=== PATIENT | male | born 1985 | race Caucasian/White ===

== ENCOUNTER 2017-01-19 11:21 | Observation (INO) | payer OTHER ==
[2017-01-19 11:24] VITALS: BMI 42.5
--- NOTE | 2017-01-19 11:45 | ED PDOC ---
HPI: Abdomen Time Seen by Provider: 01/19/17 11:34 Chief Complaint (Nursing): Abdominal Pain Chief Complaint (Provider): Abdominal pain History Per: Patient History/Exam Limitations: no limitations Onset/Duration Of Symptoms: Hrs Outside of [place] travel?: No Current Symptoms Are (Timing): Still Present Context: Food Severity: Moderate Location Of Pain/Discomfort: Epigastric Quality Of Discomfort: Sharp Associated Symptoms: Nausea, Vomiting. denies: Diarrhea, Back Pain, Chest Pain Additional History Per: Family Additional Complaint(s): The pt. is a 31yo male, presents to the ED for evaluation of epigastric pain associated with nausea and multiple episodes of vomiting since this morning. Pt reports he ate a lot of food last night, went to sleep and upon waking up this morning had sharp epigastric abdominal pain and vomiting, initially with food in vomitus and later with "bitter yellow fluid." Pt reports normal bowel movement this morning. Pt's is present at bedside and reports the family ate similar food as the pt and are without symptoms. additionally reports the pt ate pork 2 weeks ago after which he had similar symptoms. also reports giving the pt Zofran without relief. Pt denies any chest pain, shortness of breath, headache or dizziness. Pt offers no additional medical complaints. No lower abd pain, back pain, weakness, palpitations. Denies drugs or etoh. Past Medical History Reviewed: Historical Data, Nursing Documentation, Vital Signs Vital Signs: Last Vital Signs Temp 97.8 F 01/19/17 11:26 Pulse 68 01/19/17 11:26 Resp 18 01/19/17 11:26 BP 128/72 01/19/17 11:26 Pulse Ox 100 01/19/17 13:36 - Medical History PMH: No Chronic Diseases Denies: Diabetes, HTN - Surgical History Surgical History: No Surg Hx - Family History Family History: States: Unknown Family Hx - Living Arrangements Living Arrangements: With Family - Social History Current smoker - smoking cessation education provided: No Alcohol: None Drugs: Denies - Immunization History Hx Tetanus Toxoid Vaccination: No Hx Influenza Vaccination: No Hx Pneumococcal Vaccination: No - Home Medications Home Medications: Ambulatory Orders Medication Instructions Recorded Meclizine HCl [Antivert/25] 1 tab PO TID PRN #25 tab 12/07/15 Acetaminophen [Acetaminophen Extra 1,000 mg PO Q6 PRN #60 tablet 12/09/15 Strength] Ibuprofen 600 mg PO Q6 #60 tab 12/09/15 Oseltamivir Phosphate [Tamiflu] 75 mg PO BID #10 capsule 12/09/15 - Allergies Allergies/Adverse Reactions: Allergies Allergy/AdvReac Type Severity Reaction Status Date / Time No Known Allergies Allergy Verified 01/19/17 11:26 Review of Systems ROS Statement: Except As Marked, All Systems Reviewed And Found Negative Cardiovascular: Negative for: Chest Pain Respiratory: Negative for: Shortness of Breath Gastrointestinal: Positive for: Nausea, Vomiting, Abdominal Pain. Negative for : Diarrhea Neurological: Negative for: Headache, Dizziness Physical Exam - Reviewed Nursing Documentation Reviewed: Yes Vital Signs Reviewed: Yes - Physical Exam Appears: Positive for: Well, Non-toxic, Uncomfortable Head Exam: Positive for: ATRAUMATIC, NORMAL INSPECTION, NORMOCEPHALIC Skin: Positive for: Normal Color, Warm, DRY Eye Exam: Positive for: Normal appearance Neck: Positive for: Normal, Supple Cardiovascular/Chest: Positive for: Regular Rate, Rhythm Respiratory: Positive for: Normal Breath Sounds. Negative for: Respiratory Distress Gastrointestinal/Abdominal: Positive for: Soft, Tenderness (Mild epigastric tenderness. no periumbilical tenderness, no lower abdomen tenderness noted.). Negative for: Mass, Guarding Back: Positive for: Normal Inspection Extremity: Positive for: Normal ROM. Negative for: Deformity, Swelling Neurologic/Psych: Positive for: Alert, Oriented - Laboratory Results Result Diagrams: 01/19/17 12:20 01/19/17 12:20 Interpretation Of Abn Labs: 13.9k - ECG ECG: Positive for: Interpreted By Me, Viewed By Me ECG Rhythm: Positive for: Sinus Bradycardia O2 Sat by Pulse Oximetry: 100 (RA) Pulse Ox Interpretation: Normal - Radiology X-Ray: Interpreted by Me, Viewed By Me X-Ray Interpretation: No Acute Disease - Progress ED Course And Treament: 1347: Spoke with Dr. Bear. Will admit pt. tele obs. Stable. AAOx3. Pt. bradycardic. Needs eval. Medical Decision Making Medical Decision Making: Time: 1142 Impression: Abdominal pain with vomiting Plan: * * * Scribe Attestation: Documented by Adele Syed acting as a scribe for Ghulam Zavala MD. Provider Attestation: All medical record entries made by the Scribe were at my direction and personally dictated by me. I have reviewed the chart and agree that the record accurately reflects my personal performance of the history, physical exam, medical decision making, and the department course for this patient. I have also personally directed, reviewed, and agree with the discharge instructions and disposition. Disposition - Clinical Impression Clinical Impression: Abdominal pain, Bradycardia - Patient ED Disposition Is Patient to be Admitted: Yes Counseled Patient/Family Regarding: Studies Performed, Diagnosis - Disposition Disposition Time: 13:48 Condition: SERIOUS - Pt Status Changed To: Hospital Disposition Of: Observation - POA Present On Arrival: None
[2017-01-19] MEDS ORDERED: Sodium Chloride 0.9% 1,000 ML IV STA (11:50)
[2017-01-19 12:37] LABS: BASO % 0.3 % (0.0-2.0); EOS % 0.2 % (0.0-4.0); HEMATOCRIT 46.7 % (35.0-51.0); LYMPH # 1.3 K/uL (1.0-4.3); LYMPH % 9.2 % (20.0-40.0); MEAN CELL VOLUME 83.3 fl (80.0-94.0); MEAN CORPUSCULAR HEMOGLOBIN 27.7 pg (27.0-31.0); MEAN CORPUSCULAR HGB CONC 33.2 g/dL (33.0-37.0); MEAN PLATELET VOLUME 9.5 fl (7.2-11.7); MONO # 0.3 K/uL (0.0-0.8); MONO % 2.4 % (0.0-10.0); NEUT # 12.2 K/uL (1.8-7.0); NEUT % 87.9 % (50.0-75.0); PLATELET COUNT 263 K/uL (130-400); RED CELL DISTRIBUTION WIDTH 13.9 % (11.5-14.5); WHITE BLOOD COUNT 13.9 K/uL (4.8-10.8)
[2017-01-19 12:47] LABS: ALB/GLOB RATIO 1.3 (1.0-2.1); ALKALINE PHOSPHATASE 78 U/L (38-126); ALT/SGPT 37 U/L (21-72); AST/SGOT 42 U/L (17-59); BILIRUBIN,TOTAL 0.9 mg/dl (0.2-1.3); BLOOD UREA NITROGEN 16 mg/dl (9-20); CALCIUM 9.6 mg/dL (8.4-10.2); CARBON DIOXIDE 29 mmol/L (22-30); CHLORIDE 100 mmol/L (98-107); GFR AFRICAN-AMERICAN > 60; GLUCOSE,RANDOM 146 mg/dL (75-110); LIPASE 90 U/L (23-300); SODIUM 141 mmol/l (132-148); TOTAL PROTEIN 9.3 G/DL (6.3-8.2)
[2017-01-19 13:10] LABS: POTASSIUM 5.3 MMOL/L (3.6-5.0)
[2017-01-19] MEDS ORDERED: Sodium Chloride 0.9% 500 ML IV STA (13:46)
[2017-01-19] MEDS ORDERED: Iohexol 240 (50 ml) ONE (14:11)
[2017-01-19] MEDS ORDERED: Iohexol 240 (50 ml) PO ONE (14:14)
[2017-01-19 14:33] LABS: T4 10.2 ug/dl (5.5-11.0)
--- NOTE | 2017-01-19 14:35 | CP.PCM.HP ---
History of Present Illness - History of Present Illness History of Present Illness: Hospitalist Admission H&P (Patient was seen and examined at 1:55 PM 01/19/17 ER Bed #24) PMD: States he does not have a doctor CODE STATUS: FULL CODE. NO Living Will/Advance Directive. Victorina has been designated by patient as his Health Care Proxy. CHIEF COMPLAINT: Abdominal Pain 31 year old male (who denies any medical history) who presents to the [facility] ER by having his drive him here with a chief complaint of abdominal pain. Around 8 PM last night patient had a dinner of home cooked chicken and sanchez with spring mix salad. He went to sleep without any issues but woke up around 3 AM hungry and had some peaches, pineapple, and a glass of orange juice. He went back to sleep but then woke up at 8 AM with epigastric pain that was sharp in nature, nonradiating. He went to the bathroom and had a normal (nonbloody/ nonblack/well formed) bowel movement and this was followed by 5 episodes of nausea and vomiting (nonbilious/nonbloody that was described as the food he had eaten) within 1 hour. As the pain was not going away he asked his to drive him here to the ER. Currently upon FULL ROS there is NO chest pain, NO palpitations, NO SOB/Cough/ Wheezing, (+) Abdominal Pain Epigastric as described above, (+) Nausea that is improved compared to this morning, NO vomiting while in the ER, NO diarrhea, NO burning/pain with urination, NO lightheadedness/dizziness, NO headache, NO new changes in vision/loss of vision/eye pain, NO new changes in hearing/ear pain/ loss of hearing/tinnitus, NO paresthesias/numbness, NO edema. 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 [employer], Lives with and Son, NO tobacco, NO alcohol, NO illicit drugs Family Hx: Mom (healthy), Dad (Hx of Hepatitis C and subsequent Liver Transplant Present on Admission - Present on Admission Any Indicators Present on Admission: Yes History of DVT/PE: No History of Uncontrolled Diabetes: No Urinary Catheter: No Decubitus Ulcer Present: No Review of Systems - Review of Systems Review of Systems: Please see HPI Past Patient History - Infectious Disease Hx of Infectious Diseases: None - Past Medical History & Family History Pertinent Family History: Please see HPI - Past Social History Alcohol: None Drugs: Denies - CARDIAC Hx Hypertension: No - NEUROLOGICAL Hx Vertigo: Yes - PSYCHIATRIC Hx Substance Use: No - SURGICAL HISTORY Hx Surgeries: No - ANESTHESIA Hx Anesthesia: No Meds Allergies/Adverse Reactions: Allergies Allergy/AdvReac Type Severity Reaction Status Date / Time No Known Allergies Allergy Verified 01/19/17 11:26 Physical Exam - Constitutional Appears: Non-toxic, No Acute Distress Additional comments: Please note that when I entered the patients room in the ER he was sleeping soundly and easily arousable. Once awake and having him sitting up in the stretcher, patient kept on repeating that he was in pain in the epigastric area and patient could not seem to sit still. As the my interview and exam progressed , the patient did not appear to be any pain but as soon as my exam was concluded and I explained the evaluation and treatment plan, patient layed down and again appeared to be in pain. I left the room to put in a few orders for the patient and then a few minutes later, walked to patient room to check in on patient, and he was sleeping peacefully. - Head Exam Head Exam: ATRAUMATIC, NORMAL INSPECTION, NORMOCEPHALIC - Eye Exam Eye Exam: EOMI, Normal appearance, PERRL Pupil Exam: NORMAL ACCOMODATION, PERRL - ENT Exam ENT Exam: Normal Exam, Normal External Ear Exam, Normal Oropharynx Additional comments: Mucous Membranes are Dry - Neck Exam Neck exam: Positive for: Normal Inspection Additional comments: NO cervical/supraclavicular/submandibular lymphadenopathy NO thyromegaly - Respiratory Exam Respiratory Exam: Clear to Auscultation Bilateral, NORMAL BREATHING PATTERN Additional comments: CTA B/L, NO R/R/W - Cardiovascular Exam Cardiovascular Exam: REGULAR RHYTHM, +S1, +S2 Additional comments: NS1 and NS2, NO N/R/G - GI/Abdominal Exam Additional comments: BSx4, Soft, Central Obesity, NO HSM, (+) Epigastric Pain with palpation (pain appears to be out of proportion to exam) however there was NO guarding/rebound tenderness - Extremities Exam Extremities exam: Positive for: normal inspection Additional comments: In the Bilateral UE and LE: Capillary Refill is 2 seconds, NO edema, Pulses are strong and equal - Neurological Exam Neurological exam: Alert, CN II-XII Intact, Oriented x3 - Skin Skin Exam: Intact, Normal Color, Warm Additional comments: NO rashes are noted on the chest, abdomen, arms/hands, back, legs/feet Results - Vital Signs Recent Vital Signs: Last Vital Signs Temp 98.2 F 01/19/17 14:13 Pulse 52 L 01/19/17 14:13 Resp 18 01/19/17 14:13 BP 142/79 01/19/17 14:13 Pulse Ox 100 01/19/17 14:13 - Labs Result Diagrams: 01/19/17 12:20 01/19/17 13:39 Assessment & Plan (1) Epigastric pain Assessment and Plan: LFTs and Lipase are normal Patient's nausea has improved with the Reglan given by ER Physician Patient is having bowel movements as explained in HPI Could this be secondary to gastroenteritis? Pepcid 20 mg IV Q12H Zofran 4 mg IV Q6H PRN N/V NS at 100 ml/hr x [address] Abdomen/Pelvis with PO and IV contrast Status: Acute (2) Leukocytosis Assessment and Plan: Elevated WBC Could this be secondary to stress response? NO fever Chest X Ray does not show any active disease F/U CBC in morning 01/20/17 Status: Acute (3) Sinus bradycardia Assessment and Plan: Heart Rate at 39 bpm on EKG. Current EKG when compare to EKG in November 2015 does not show any change other than the heart rate. Patient is not on any medication that would account for the low heart rate. F/U STAT TSH, T4, Magnesium, and Urine Drug Screen. F/U further recommendations from Cardiology Dr. Jm Quezada whose help will be greatly appreciated. Monitor on Observation in Telemetry Unit Status: Acute (4) Hyperkalemia Assessment and Plan: Patient was slightly hyperkalemic upon initial labs at 5.3 F/U Potassium level as part of morning labs 01/20/17 Status: Acute (5) Prophylactic measure Assessment and Plan: Heparin 5,000 units SC Q8H and B/L SCDs for DVT Prophylaxis (Risk Score of 2 based upon BMI > 40) Pepcid 20 mg IV Q12H for GI Prophylaxis Diet order based upon the results of the CT Abdomen/Pelvis Status: Acute
[2017-01-19 14:43] LABS: BASOPHIL 1 % (0-2); NEUTROPHIL 84 % (42-75); REACTIVE LYMPHOCYTES 2 % (0-0); TOTAL CELLS COUNTED 100
[2017-01-19 14:47] LABS: THYROID STIMULATING HORMONE 1.66 mIU/ML (0.46-4.68)
--- NOTE | 2017-01-19 14:55 | CARD ---
APPROVED REPORT EKG Measurement Heart [id number] <Conclusion> Marked sinus bradycardia Abnormal ECG
[2017-01-19] MEDS ORDERED: Sodium Chloride 0.9% 2,000 ML IV SCH (15:00)
[2017-01-19] MEDS ORDERED: Iohexol 300 100 ML IJ ONE (15:21)
[2017-01-19] MEDS ORDERED: Sodium Chloride 0.9% 50 ML IV ONE (15:22)
--- NOTE | 2017-01-19 15:32 | RAD ---
HISTORY: epigastric pain COMPARISON: No prior. FINDINGS: LUNGS: No active pulmonary disease. PLEURA: No significant pleural effusion identified, no pneumothorax apparent. CARDIOVASCULAR: Normal. OSSEOUS STRUCTURES: No significant abnormalities. VISUALIZED UPPER ABDOMEN: Normal. OTHER FINDINGS: None. IMPRESSION: No active disease.
--- NOTE | 2017-01-19 16:21 | CT ---
PROCEDURE: CT Abdomen and Pelvis with contrast HISTORY: Epigastric Pain COMPARISON: None. TECHNIQUE: Contrast dose: 100 cc of Omnipaque 300 Radiation dose: Total exam DLP = 1210 mGy-cm. This CT exam was performed using one or more of the following dose reduction techniques: Automated exposure control, adjustment of the mA and/or kV according to patient size, and/or use of iterative reconstruction technique. FINDINGS: LOWER THORAX: Unremarkable. LIVER: Unremarkable. No gross lesion or ductal dilatation. GALLBLADDER AND BILE DUCTS: Unremarkable. PANCREAS: Unremarkable. No gross lesion or ductal dilatation. SPLEEN: Unremarkable. ADRENALS: Unremarkable. No mass. KIDNEYS AND URETERS: Unremarkable. No hydronephrosis. No solid mass. VASCULATURE: Unremarkable. No aortic aneurysm. BOWEL: Unremarkable. No obstruction. No gross mural thickening. APPENDIX: Normal appendix. PERITONEUM: Unremarkable. No free fluid. No free air. LYMPH NODES: Unremarkable. No enlarged lymph nodes. BLADDER: Unremarkable. REPRODUCTIVE: Unremarkable. BONES: No acute fracture. OTHER FINDINGS: None. IMPRESSION: Unremarkable contrast enhanced CT of the abdomen and pelvis.
[2017-01-20 07:44] LABS: BASO # 0.1 K/uL (0.0-0.2); BASO % 0.5 % (0.0-2.0); EOS # 0.1 K/uL (0.0-0.7); EOS % 0.3 % (0.0-4.0); LYMPH # 1.9 K/uL (1.0-4.3); LYMPH % 11.5 % (20.0-40.0); MEAN CORPUSCULAR HEMOGLOBIN 27.6 pg (27.0-31.0); MEAN CORPUSCULAR HGB CONC 32.8 g/dL (33.0-37.0); MEAN PLATELET VOLUME 9.9 fl (7.2-11.7); MONO # 0.9 K/uL (0.0-0.8); MONO % 5.6 % (0.0-10.0); NEUT # 13.4 K/uL (1.8-7.0); NEUT % 82.1 % (50.0-75.0); NRBC % 0.4 % (0.0-0.0); RED CELL DISTRIBUTION WIDTH 14.2 % (11.5-14.5); WHITE BLOOD COUNT 16.4 K/uL (4.8-10.8)
[2017-01-20 08:20] LABS: ALB/GLOB RATIO 1.3 (1.0-2.1); ALKALINE PHOSPHATASE 68 U/L (38-126); ALT/SGPT 32 U/L (21-72); AST/SGOT 23 U/L (17-59); BLOOD UREA NITROGEN 8 mg/dl (9-20); CALCIUM 8.8 mg/dL (8.4-10.2); CARBON DIOXIDE 27 mmol/L (22-30); CHLORIDE 101 mmol/L (98-107); GFR AFRICAN-AMERICAN > 60; GLUCOSE,RANDOM 120 mg/dL (75-110); POTASSIUM 3.5 MMOL/L (3.6-5.0); SODIUM 138 mmol/l (132-148); TOTAL PROTEIN 7.6 G/DL (6.3-8.2)
--- NOTE | 2017-01-20 10:27 | CP.PCM.PN ---
Subjective - Date & Time of Evaluation Date of Evaluation: 01/20/17 Time of Evaluation: 10:00 Objective - Vital Signs/Intake and Output Vital Signs (last 24 hours): Temp Pulse Resp BP Pulse Ox 99.4 F 64 20 136/74 97 01/20/17 08:00 01/20/17 08:00 01/20/17 08:00 01/20/17 08:00 01/20/17 08:00 - Medications Medications: Current Medications Acetaminophen (Tylenol 325mg Tab) 650 mg PO Q6 PRN PRN Reason: Fever >100.4 F Famotidine (Pepcid) 20 mg IVP Q12 MICHELL Last Admin: 01/19/17 21:30 Dose: Not Given Heparin Sodium (Porcine) (Heparin) 5,000 units SC Q8 MICHELL PRN Reason: Protocol Last Admin: 01/20/17 09:36 Dose: 5,000 units Sodium Chloride (Sodium Chloride 0.9%) 2,000 mls @ 100 mls/hr IV .Q20H [facility] Stop: 01/20/17 14:53 Last Admin: 01/19/17 17:20 Dose: 100 mls/hr Ketorolac Tromethamine (Toradol) 15 mg IVP Q6 PRN PRN Reason: Pain, moderate (4-7) Ketorolac Tromethamine (Toradol) 30 mg IVP Q6 PRN PRN Reason: Pain, severe (8-10) Ondansetron HCl (Zofran Inj) 4 mg IVP Q6 PRN PRN Reason: Nausea/Vomiting - Labs Labs: 01/20/17 06:30 01/20/17 06:30
--- NOTE | 2017-01-20 10:28 | CP.PCM.DIS ---
Provider - Provider Date of Admission: 01/19/17 13:44 Attending physician: Pineda Bear MD Primary care physician: None Consults: Cardiology consult Time Spent in preparation of Discharge (in minutes): 15 Hospital Course - Lab Results Lab Results: Most Recent Lab Values WBC 16.4 K/uL (4.8-10.8) H 01/20/17 06:30 RBC 5.11 Mil/uL (4.40-5.90) 01/20/17 06:30 Hgb 14.1 g/dL (12.0-18.0) 01/20/17 06:30 Hct 43.0 % (35.0-51.0) 01/20/17 06:30 MCV 84.0 fl (80.0-94.0) 01/20/17 06:30 MCH 27.6 pg (27.0-31.0) 01/20/17 06:30 MCHC 32.8 g/dL (33.0-37.0) L 01/20/17 06:30 RDW 14.2 % (11.5-14.5) 01/20/17 06:30 Plt Count 227 K/uL (130-400) 01/20/17 06:30 MPV 9.9 fl (7.2-11.7) 01/20/17 06:30 Neut % (Auto) 82.1 % (50.0-75.0) H 01/20/17 06:30 Lymph % (Auto) 11.5 % (20.0-40.0) L 01/20/17 06:30 [place] % (Auto) 5.6 % (0.0-10.0) 01/20/17 06:30 Eos % (Auto) 0.3 % (0.0-4.0) 01/20/17 06:30 Baso % (Auto) 0.5 % (0.0-2.0) 01/20/17 06:30 Neut # 13.4 K/uL (1.8-7.0) H 01/20/17 06:30 Lymph # 1.9 K/uL (1.0-4.3) 01/20/17 06:30 [place] # 0.9 K/uL (0.0-0.8) H 01/20/17 06:30 Eos # 0.1 K/uL (0.0-0.7) 01/20/17 06:30 Baso # 0.1 K/uL (0.0-0.2) 01/20/17 06:30 Neutrophils % (Manual) 84 % (42-75) H 01/19/17 12:20 Lymphocytes % (Manual) 12 % (20-50) L 01/19/17 12:20 Reactive Lymphs % 2 % (0-0) H 01/19/17 12:20 Monocytes % (Manual) 1 % (0-10) 01/19/17 12:20 Basophils % (Manual) 1 % (0-2) 01/19/17 12:20 Platelet Estimate Normal (NORMAL) 01/19/17 12:20 RBC Morphology Normal (NORMAL) 01/19/17 12:20 Sodium 138 mmol/l (132-148) 01/20/17 06:30 Potassium 3.5 MMOL/L (3.6-5.0) L 01/20/17 06:30 Chloride 101 mmol/L (98-107) 01/20/17 06:30 Carbon Dioxide 27 mmol/L (22-30) 01/20/17 06:30 Anion Gap 14 (10-20) 01/20/17 06:30 BUN 8 mg/dl (9-20) L 01/20/17 06:30 Creatinine 0.8 mg/dL (0.8-1.5) 01/20/17 06:30 Est GFR ( Amer) > 60 01/20/17 06:30 Est GFR (Non-Af Amer) > 60 01/20/17 06:30 Random Glucose 120 mg/dL (75-110) H 01/20/17 06:30 Calcium 8.8 mg/dL (8.4-10.2) 01/20/17 06:30 Phosphorus 3.0 mg/dl (2.5-4.5) 01/19/17 14:00 Magnesium 2.0 MG/DL (1.6-2.3) 01/19/17 14:00 Total Bilirubin 1.0 mg/dl (0.2-1.3) 01/20/17 06:30 AST 23 U/L (17-59) 01/20/17 06:30 ALT 32 U/L (21-72) 01/20/17 06:30 Alkaline Phosphatase 68 U/L (38-126) 01/20/17 06:30 Troponin I 0.0190 ng/mL (0.00-0.120) 01/19/17 12:20 Total Protein 7.6 G/DL (6.3-8.2) 01/20/17 06:30 Albumin 4.2 g/dL (3.5-5.0) 01/20/17 06:30 Globulin 3.4 gm/dL (2.2-3.9) 01/20/17 06:30 Albumin/Globulin Ratio 1.3 (1.0-2.1) 01/20/17 06:30 Lipase 90 U/L (23-300) 01/19/17 12:20 Thyroxine (T4) 10.2 ug/dl (5.5-11.0) 01/19/17 14:00 TSH 3rd Generation 1.66 mIU/ML (0.46-4.68) 01/19/17 14:00 Urine Opiates Screen Negative (NEGATIVE) 01/19/17 17:00 Urine Methadone Screen Negative (NEGATIVE) 01/19/17 17:00 Ur Barbiturates Screen Negative (NEGATIVE) 01/19/17 17:00 Ur Phencyclidine Scrn Negative (NEGATIVE) 01/19/17 17:00 Ur Amphetamines Screen Negative (NEGATIVE) 01/19/17 17:00 U Benzodiazepines Scrn Negative (NEGATIVE) 01/19/17 17:00 U Oth Cocaine Metabols Negative (NEGATIVE) 01/19/17 17:00 U Cannabinoids Screen Negative (NEGATIVE) 01/19/17 17:00 - Hospital Course Hospital Course: 31 year old male with no PMH presented to the [facility] ER with a chief complaint of abdominal pain, nausea and vomiting . Around 8 PM last night patient had a dinner of home cooked chicken and sanchez with spring mix salad. He went to sleep without any issues but woke up around 3 AM hungry and had some peaches, pineapple, and a glass of orange juice. He went back to sleep but then woke up at 8 AM with epigastric pain that was sharp in nature, nonradiating. He went to the bathroom and had a normal (nonbloody/nonblack/well formed) bowel movement and this was followed by 5 episodes of nausea and vomiting (nonbilious/ nonbloody that was described as the food he had eaten) within 1 hour. As the pain was not going away he asked his to drive him here to the ER. in Er his Ct abdomen showed no acute pathology.While in Er he was noticed to have HR 39 so placed under observation in telemetry for sinus bradycardia that resolved spontaneously. His abdominal pain , nausea and vomiting resolved . His notified patient that the butter at home was patient is hemodtynamically stable. Will discharge patient home ' 1. Epigastric pain most likely secomdary to nausea and vomiting due to gastroenteritis/ food poisoning resolved LFTs and Lipase are normal treated with IVF, reglan IV , Famotidine IV and toradol Patient is having bowel movements as explained in HPI CT Abdomen/Pelvis with PO and IV contrast showed no acute pathology WBC elevated - most likely reactive 2. Leukocytosis Most likely reactive CT abdomen and pelvis showed no acute pathology NO fever Chest X Ray does not show any active disease Ct abd and pelvis showed no acute pathology 3. Sinus bradycardia Most likley secondary to over stimulation of vagus nerve with vomiting resolved TSH normal Discharge Exam - Head Exam Head Exam: ATRAUMATIC, NORMAL INSPECTION, NORMOCEPHALIC - Eye Exam Eye Exam: EOMI, Normal appearance, PERRL Pupil Exam: NORMAL ACCOMODATION - ENT Exam ENT Exam: Mucous Membranes Moist, Normal Exam - Neck Exam Neck exam: Full Rom, Normal Inspection - Respiratory Exam Respiratory Exam: Clear to PA & Lateral, NORMAL BREATHING PATTERN. absent: Rales, Rhonchi, Wheezes - Cardiovascular Exam Cardiovascular Exam: REGULAR RHYTHM, RRR, +S1, +S2. absent: JVD - GI/Abdominal Exam GI & Abdominal Exam: Normal Bowel Sounds, Soft. absent: Distended, Guarding, Rebound, Tenderness - Rectal Exam Rectal Exam: Deferred - Extremities Exam Extremities exam: normal capillary refill, normal inspection, pedal pulses present - Back Exam Back exam: NORMAL INSPECTION - Neurological Exam Neurological exam: Alert, CN II-XII Intact, Oriented x3, Reflexes Normal - Psychiatric Exam Psychiatric exam: Normal Affect, Normal Mood - Skin Skin Exam: Dry, Intact, Normal Color, Warm Discharge Plan - Follow Up Plan Condition: STABLE Disposition: HOME/ ROUTINE Patient education suggested?: Yes Instructions: Gastroenteritis (DC), Food Poisoning (GEN), Bradycardia (DC) Referrals: [facility] [place] [Outside]
[2017-01-20 12:35] VITALS: BP 146/78; PULSE 70; RESP 18; TEMP 99.6; O2SAT 98
== END 2017-01-20 15:35 | disposition home or self-care (01) ==
LOC: H.ER 11:21 → H.ERHOLD 13:44 → H.TEL 16:01
PROVIDERS: ADMIT Family Medicine; ATTEND Family Medicine
DX: A05.9 Bacterial foodborne intoxication, unspecified (principal); E87.5 Hyperkalemia; R10.13 Epigastric pain; D72.828 Other elevated white blood cell count; R00.1 Bradycardia, unspecified